=== PATIENT | male | born 1995 | race African-American/Black ===

== ENCOUNTER 2021-11-28 03:26 | Emergency (ER) | payer MEDICAID, OTHER ==
[~2021-11-28] VITALS: Ht 177.8 cm; Wt 100.0 kg
[2021-11-28] MEDS ORDERED: VALPROATE SODIUM 1,000 MG in DEXT 5% WATER 100 ML IV ONE (04:15)
[2021-11-28] MEDS ORDERED: IBUPROFEN 600MG TABLET PO ONE (04:15)
[2021-11-28 04:44] LABS: BASOPHILS % 0.4 % (0.0-2.0); EOSINOPHILS % 0.7 % (0.0-5.0); HEMATOCRIT. 41.2 % (42.0-52.0); HEMOGLOBIN. 13.4 g/dL (14.0-18.0); MEAN CORPUSCULAR HEMOGLOBIN 27.9 pg (28.0-32.0); MEAN CORPUSCULAR VOLUME 85.7 fL (80.0-94.0); MONOCYTES % 10.5 % (2.0-8.0); NEUTROPHILS % 70.4 % (40.0-76.0); PLATELET 353 x1000/uL (130-400); RED CELL DISTRIBUTION WIDTH 14.7 % (11.6-14.6)
[2021-11-28 04:56] LABS: CHLORIDE 104 mEq/L (98-107)
[2021-11-28 05:03] LABS: VALPROIC ACID <3.0 ug/mL ug/mL (50-100)
[2021-11-28 06:57] VITALS: BP 124/70
== END 2021-11-28 06:58 | disposition home or self-care (01) ==
LOC: EDBD 03:26 → ER 03:26
DX: G40.909 Epilepsy, unspecified, not intractable, without status epilepticus (principal); M25.511 Pain in right shoulder; Z91.81 History of falling
CPT/HCPCS: 36415; 73030; 80053; 80165; 85025; 96365; 99284; J3490; J7060